=== PATIENT | male | born 1940 | race Caucasian/White ===

== ENCOUNTER 2016-06-01 01:57 | Emergency (ER) | payer MEDICARE, OTHER ==
--- NOTE | 2016-06-01 02:12 | ERNOTE ---
Abdominal HPI - General Time Seen by Provider: 06/01/16 02:02 Source: patient Exam Limitations: no limitations - Immun/Allergies/Home Medications Allergies/Adverse Reactions: Allergies Penicillins Allergy (Unknown, Verified 06/01/16 02:17) Home Medications: HOME MEDICATIONS Albuterol Sulfate [Proair Hfa] 2 puff IH DAILY 07/04/12 [Last Taken Unknown] Fluticasone Propionate [Flovent Hfa] 2 puff IH DAILY 07/04/12 [Last Taken Unknown] Isosorbide Mononitrate [Imdur] 30 mg PO DAILY 07/04/12 [Last Taken Unknown] Metoprolol Tartrate [Lopressor] 25 mg PO BID 07/04/12 [Last Taken Unknown] Multivitamin [Multivitamins] 1 each PO DAILY 07/04/12 [Last Taken Unknown] Nitroglycerin [Nitrostat 0.4 MG] 1 tab SL PRN PRN 07/04/12 [Last Taken Unknown] Sodium Chloride [Saline Mist] 2 puff NS DAILY PRN 07/04/12 [Last Taken Unknown] Tamsulosin HCl [Flomax] 0.4 mg PO HS 07/04/12 [Last Taken Unknown] Aspirin [Aspirin Enteric Coated] 81 mg PO DAILY 12/26/14 [Last Taken Unknown] Flunisolide 25 ml NS DAILY 12/26/14 [Last Taken Unknown] Losartan Potassium [Cozaar] 100 mg PO DAILY 12/26/14 [Last Taken Unknown] Pantoprazole Sodium [Protonix] 40 mg PO DAILY 12/26/14 [Last Taken Unknown] Rosuvastatin Calcium [Crestor] 40 mg PO HS 12/26/14 [Last Taken Unknown] Dabigatran Etexilate Mesylate [Pradaxa] 150 mg PO BID 06/01/16 [Last Taken Unknown] Ipratropium/Albuterol Sulfate [Combivent Respimat Inhal [place]] 1 puff IH QID [Last Taken Unknown] - History of Present Illness Narrative: Patient has had abdominal pain intermittently for about a month. The pain usually starts after dinner (which is his biggest meal) is severe till he vomits and then resolves after a few hours. Overall he has not had much of an appetite, normal bowel movement yesterday. He had his gallbladder removed about six years ago and about a months ago had similar pain with a gallstone. Review of Systems - Review of Systems Constitutional: Present: chills. Absent: recent illness, fever ENT: Absent: sore throat Respiratory: Absent: shortness of breath, cough Cardiology: Absent: chest pain Gastrointestinal/Abdominal: Present: See HPI Genitourinary: Present: no symptoms reported Musculoskeletal: Absent: muscle pain Skin: Absent: rash Neurological: Absent: headache - Patient's Past Medical History Patient History - Cardiac/Respiratory: Coronary Heart Disease, Hypertension, Hyperlipidemia, Peripheral Vascular Disease Patient History - Surgical Procedures: Cholecystectomy, Coronary Bypass Surgery , Cardiac stent, T & A, Other - aneurysm repair - Social History Living Situations: alone Abuse History: No History of abuse Psych History: No pertinent hx Smoking Status: Former smoker - quit 2000 Have you smoked in the past 12 months: No Alcohol Use: sober - quit 2000 - Immunizations Immunizations Up to Date: Yes Hx Pneumococcal Vaccination: Yes History of Influenza Vaccine: Yes Physical Exam - Physical Exam General Appearance: Present: wd/wn, alert, mild distress, obese Ears, Nose, Throat: Present: normal pharynx Respiratory: Present: no respiratory distress, normal breath sounds, no accessory muscle use, lungs clear Cardiovascular/Chest: Present: regular rate, rhythm, no murmur Gastrointestinal/Abdominal: Present: soft, tenderness - mildly throughout, distended Neurological Exam: Present: alert, oriented, normal mood/affect Skin Exam: Present: warm/dry, pallor ED Progress - Results and Orders Patient's Lab Results:: I have reviewed the patient's lab results. - Vital Signs Patient's Vital Signs:: I have reviewed the patient's vital signs. - X-Ray X-Ray #1 X-Ray: abdomen - unspecific gas pattern Interpretation: Interp. by me - Progress/Reassessment Progress Note-Subjective: 06/01/16 02:45 patient vomited a small amount and pain is slightly improved 08/2806/01/16 03:18 still having pain, offered pain medication, patient declined 06/01/16 03:50 explained lab results, concern about ductal stone, per chart prior episode in 2012, patient states that at that time he had a stone removed and stent placed by Dr Sabillon at the [facility], will get ultrasound 06/01/16 05:04 patient would like to go home as he has his dog to take care off 06/01/16 05:40 discussed ultrasound results with patient and need to for repeat ERCP, patient insist that he needs to take care of his dog which is in his car, a friend is driving in from out of town and he is willing to go later in the day. He understands that there is a risk of worsening liver function, pancreatitis, infection and , will sign AMA form 06/01/16 07:[address] Sabillon directly (was not available) 06/01/16 07:38 discussed with Florence from case management, will work on referring patient for further treatment Departure - Departure Clinical Impression: Dilated bile duct Disposition: Against medical advice Condition: Fair Instructions: Biliary Colic Additional Instructions: return to the ER at any times if you change your mind we will try to set you up with DR Sabillon again as you will most likely need another ERCP and have a stent placed again
--- OUTSIDE RECORDS SUMMARY | 2016-06-01 02:33 | XMS REPORT | Continuity of Care Document ---
:1940 Author Organization [employer] [place] [address] Care Team Providers Name Role Phone Unavailable Primary Care Provider Unavailable Source Comments This disclosure is being made pursuant to the Law[employer]ite program and maynot contain all information available regarding this patient.[employer] Active Allergies and Adverse Reactions Not on File Current Medications Be aware that medications may not be up to date as of this document. Alwaysverify current medications with the patient. Not on file Active Problems Not on file Social History Tobacco Use Types Packs/Day Years Used Date Never Assessed Plan of Care Health Maintenance Due Date Last Done Comments Retired-Pertussis Vaccine Adult 1961 Retired-Tetanus Vaccine Adult 1959 Colonoscopy 1992 Well Adult Visit 1992 Zoster Vaccine 60+ 2002 Retired-Pneumococcal 23 Vaccine-65+ yo 09/14/2007 Retired-INFLUENZA VACCINE 11/19/2014 Results from Last 3 Months Not on file
--- OUTSIDE RECORDS SUMMARY | 2016-06-01 02:33 | XMS REPORT | Continuity of Care Document ---
:1940 Author Organization [facility] ([facility]) [place] [address] Phone [phone] Care Team Providers Name Role Phone [facility], [facility] Primary Care Provider [phone] Source Comments This disclosure is being made pursuant to the Care Everywhere program, applicable federal and state laws, and may not contain all informaitonavailable regarding this patient.[facility] ([facility]) Active Allergies and Adverse Reactions Allergen Noted Date Severity Reactions Comments Penicillins Respiratory Distress Current Medications Prescription Sig. Disp. Refills Start Date End Date Status albuterol 90 Use 2 Puffs by inhalation Active mcg/Actuation daily. inhaler fluticasone 50 use 2 Sprays into the Active mcg/Actuation nose daily. nasal spray isosorbide Take 30 mg by mouth Every Active mononitrate 30 mg morning. Indications: CR tablet CHRONIC ANGINA PECTORIS valsartan (DIOVAN) Take 160 mg by mouth Active 160 mg tablet daily. tamsulosin 0.4 mg Take 0.4 mg by mouth at Active ER capsule bedtime. omeprazole 20 mg Take 20 mg by mouth Active extended release daily. capsule atorvastatin 80 mg Take 80 mg by mouth every Active tablet evening. Indications: HYPERCHOLESTEROLEMIA fenofibrate Take 145 mg by mouth Active (TRICOR) 145 mg daily. tablet aspirin 81 mg Take 1 Tab by mouth 100 Tab 4 07/14/2012 Active chewable tablet daily. Indications: prevention of thrombotic events metoPROLol Take 0.5 Tabs by mouth 2 30 Tab 0 07/11/2012 Active tartrate 25 mg times daily. 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 07/22/2005 Personal history of thrombophlebitis 05/04/2005 Peripheral vascular disease, unspecified 05/04/2005 Immunizations Name Dates Previously Given Next Due Influenza, unspecified 01/31/2003 Pneumococcal, unspecified 01/31/2003 Social History Tobacco Use Types Packs/Day Years Used Date Former Smoker Smokeless Tobacco: Former User Quit: 07/05/1999 Tobacco Cessation:Counseling Given: Yes Comments: Alcohol Use Drinks/Week oz/Week Comments No Last Filed Vital Signs Vital Sign Reading Time Taken Blood Pressure 105/51 12/10/2015 12:42 PM CDT Pulse 65 12/10/2015 12:40 PM CDT Temperature 36.7 C (98.1 F) 12/10/2015 12:40 PM CDT Respiratory Rate 20 12/10/2015 12:40 PM CDT Height 1.836 m (6' 0.28") 12/10/2015 12:42 PM CDT Weight 123.25 kg (271 lb 11.5 oz) 12/10/2015 12:42 PM CDT Body Mass Index 36.56 12/10/2015 12:42 PM CDT Oxygen Saturation 96% 12/10/2015 12:40 PM CDT Plan of Care Health Maintenance Due Date Last Done Comments Hepatitis B Vaccine (1 of 3 - Primary 1942 Series) Tdap Vaccine 1953 Td Vaccine 1960 Prostate Cancer Screening 1992 Zoster Vaccine 2002 Pneumococcal Vaccine (1 of 2 - PCV13) 09/14/2007 Lipid Disorder Screening 08/20/2009 08/20/2004, 01/26/2004 Colonoscopy 04/24/2014 04/24/2004, 04/21/2004 Influenza Vaccine: Seasonal (#1) 10/20/2015 01/31/2003 Results from Last 3 Months Not on file
[2016-06-01] MEDS ORDERED: ONDANSETRON HCL/PF 2 MG/ML VIAL IV ONE (02:35)
[2016-06-01] MEDS ORDERED: NORMAL SALINE 1,000 ML IV ONE (02:37)
[2016-06-01 03:02] LABS: Hematocrit 40.6 % (42.0-52.0); Hemoglobin 13.5 gm/dL (13.5-18.0); Mean Cell Volume 88.8 fl (78-100); Mean Corpuscular Hemoglobin 29.5 pg (27-31); Mean Corpuscular Hgb Conc 33.3 g/dl (32-36); Mean Platelet Volume 10.1 fl (6.0-9.5); Neutrophil # 9.2 K/mm3 (1.3-6.0); Neutrophil % 87.7 % (42-75.0); Platelet Count 145 K/mm3 (150-450); Red Blood Count 4.57 M/mm3 (4.7-6.0); Red Cell Distribution Width 13.2 % (11.5-14.0); White Blood Count 10.5 K/mm3 (4.0-10.5)
[2016-06-01] MEDS ORDERED: ONDANSETRON HCL/PF 2 MG/ML VIAL ONE (03:06)
[2016-06-01 03:18] LABS: Albumin * 3.3 gm/dl (3.4-5.0); Anion Gap 14.1 mmol/L (6.8-13.8); BUN/Creatinine Ratio 10.6 (9.0-21.6); Bilirubin, Total 1.9 mg/dL (0.0-1.1); Ca. Corrected For Albumin 9.3 mg/dL (8.4-10.2); Calcium * 9.1 mg/dL (7.9-10.9); Carbon Dioxide 25.9 mmol/L (24-32.6)
[2016-06-01] MEDS ORDERED: ONDANSETRON 4 MG TAB.RAPDIS PO ONE (05:08)
[2016-06-01] MEDS ORDERED: ONDANSETRON 4 MG TAB.RAPDIS ONE (05:11)
[2016-06-01 05:54] VITALS: BP 143/65
== END 2016-06-01 05:56 | disposition left against medical advice (07) ==
LOC: ER 01:57
DX: K80.50 Calculus of bile duct without cholangitis or cholecystitis without obstruction (principal); I25.2 Old myocardial infarction; I10 Essential (primary) hypertension